=== PATIENT | male | born 1965 | race Caucasian/White ===

== ENCOUNTER 2016-10-12 12:09 | Inpatient (IN) | payer BC ==
[~2016-10-12] VITALS: Ht 175.3 cm; Wt 109.4 kg
[2016-10-12 13:00] LABS: HEMATOCRIT 43.7 % (38.0-50.0); MCH 29.7 PG (29.0-34.0); MCHC 33.4 G/DL (30.0-36.0); MEAN PLAT.VOLUME 9.8 uM^3 (9.0-12.4); PLATELET COUNT 205 K/uL (156-360); RBC DIS.WIDTH-CV 13.3 % (11.8-14.6); RBC DIS.WIDTH-SD 43.2 % (39-53); RED BLOOD COUNT 4.91 M/uL (4.00-5.50); WHITE BLOOD COUNT 8.9 K/uL (4.1-10.2)
[2016-10-12 13:09] LABS: CHLORIDE 104 mEq/L (99-109); POTASSIUM 4.4 mEq/L (3.7-5.4); SODIUM 136 mEq/L (136-147)
[2016-10-12 13:11] LABS: GLUCOSE 112 mg/dL (70-99)
[2016-10-12 13:12] LABS: ANION GAP 10 MEQ/L (2-14)
[2016-10-12 13:15] LABS: GFR ESTIMATE (CALCULATED) > 59 mL/min/; UREA NITROGEN (BUN) 14 mg/dL (9-23)
[2016-10-12 13:21] LABS: TROP-I INTERPRETATION NEGATIVE; TROPONIN-I 0.21 ng/mL (0.0-0.30)
[2016-10-12 17:12] LABS: PROTHROMBIN TIME 11.5 SEC (10.2-12.9)
[2016-10-12] MEDS ORDERED: PROAIR HFA8.5 GM IH (17:52)
[2016-10-12] MEDS ORDERED: GENVOYA TABLET1 EACH PO (17:53)
[2016-10-12] MEDS ORDERED: NAPROXEN500 MG PO (17:55)
[2016-10-12] MEDS ORDERED: CIALIS5 MG PO (17:57)
[2016-10-12] MEDS ORDERED: AXIRON30 MG/1.5 TD (17:59)
[2016-10-12] MEDS ORDERED: ZYRTEC10 M3 PO (18:01)
[2016-10-12] MEDS ORDERED: ALEVE220 M2 PO (18:05)
[2016-10-12 20:32] LABS: TROP-I INTERPRETATION NEGATIVE; TROPONIN-I 0.14 ng/mL (0.0-0.30)
[2016-10-12 21:15] VITALS: BP 136/94
[2016-10-13 00:03] VITALS: BP 135/88
[2016-10-13 02:45] LABS: TROP-I INTERPRETATION NEGATIVE; TROPONIN-I 0.09 ng/mL (0.0-0.30)
[2016-10-13 03:53] VITALS: BP 126/80
[2016-10-13 07:43] VITALS: BP 140/88
[2016-10-13 08:45] LABS: HEMATOCRIT 42.5 % (38.0-50.0); MCH 29.5 PG (29.0-34.0); MCV 92.2 FL (86-99); MEAN PLAT.VOLUME 10.2 uM^3 (9.0-12.4); PLATELET COUNT 204 K/uL (156-360); RBC DIS.WIDTH-CV 13.7 % (11.8-14.6); RBC DIS.WIDTH-SD 46.2 % (39-53); RED BLOOD COUNT 4.61 M/uL (4.00-5.50); WHITE BLOOD COUNT 8.1 K/uL (4.1-10.2)
[2016-10-13] MEDS ORDERED: MUCINEX DM ER1 EACH PO (09:29)
[2016-10-13] MEDS ORDERED: MUCINEX1200 MG PO (09:30)
[2016-10-13 09:53] LABS: ALKALINE PHOSPHATASE 82 IU/L (3-129); ANION GAP 11 MEQ/L (2-14); CHLORIDE 105 MEQ/L (99-109); GFR ESTIMATE (CALCULATED) > 59 mL/min/; GLUCOSE 102 mg/dL (70-99); POTASSIUM 4.5 MEQ/L (3.7-5.4); SAMPLE HEMOLYSIS CHECK 0; SAMPLE ICTERIC CHECK 0; SAMPLE LIPEMIA CHECK 0; SODIUM 137 MEQ/L (136-147); TOTAL BILIRUBIN 0.7 MG/DL (0.0-1.0); UREA NITROGEN (BUN) 12 mg/dL (9-23)
[2016-10-13 15:54] VITALS: BP 126/84
[2016-10-13 19:52] VITALS: BP 130/89
[2016-10-13 23:33] VITALS: BP 138/86
[2016-10-14 03:43] VITALS: BP 124/85
[2016-10-14 05:59] LABS: INTER. NORMALIZED RATIO 1.1; PROTHROMBIN TIME 11.6 SEC (10.2-12.9)
[2016-10-14 06:09] LABS: PTT 54.4 SEC (25-37)
[2016-10-14 07:43] VITALS: BP 160/101
[2016-10-14] MEDS ORDERED: LOVENOX100 MG/1 M SC (12:13)
[2016-10-14] MEDS ORDERED: COUMADIN5 MG PO ×2 (12:14→13:09)
[2016-10-19 16:33] LABS: ANTITHROMBIN III ACTIVITY+ 110 (80-120); DRVVT Mixing Study Interp Not Indicated (()); PROTEIN C FUNCTIONAL ACTIVITY+ 156 % (70-180); PTT-LA 44 sec (<=40); PTT-LA Reflex Has been added (()); Protein S, Free 113 % normal (57-171); Thrombosis Consult Level Limited (()); dRVVT Screen 32 sec (<=45)
== END 2016-10-14 14:44 | disposition home or self-care (01) | DRG 176 ==
LOC: EME 12:09 → 5SOUTH 16:22 → EDOF 16:22 → ENRESERV 16:34 → 5SOUTH 20:49
PROVIDERS: Anesthesiology; Emergency Medicine; Internal Medicine; Nurse Practitioner Adult Health
DX: I26.99 Other pulmonary embolism without acute cor pulmonale (principal); I82.442 Acute embolism and thrombosis of left tibial vein; I82.432 Acute embolism and thrombosis of left popliteal vein; Z21 Asymptomatic human immunodeficiency virus [HIV] infection status; G47.33 Obstructive sleep apnea (adult) (pediatric); I10 Essential (primary) hypertension; J45.909 Unspecified asthma, uncomplicated; I27.2 Other secondary pulmonary hypertension; M72.2 Plantar fascial fibromatosis; K21.9 Gastro-esophageal reflux disease without esophagitis; E66.9 Obesity, unspecified; Z68.35 Body mass index [BMI] 35.0-35.9, adult
CPT/HCPCS: 71020; 71275; 80048; 80053; 81240 90; 83090 90; 84484; 85027; 85240 90; 85300 90; 85303 90; 85305 90; 85306 90; 85610; 85613 90; 85730; 85730 90; 86146 90; 86147 90; 93005; 93306; 93970; 99202; 99281; 99285; J1650; J7030